=== PATIENT | male | born 1950 | race Two or more races ===

== ENCOUNTER → 2018-06-29 | Day surgery (SDC) | payer BC ==
[2018-06-25 11:34] VITALS: BMI 25.7
[~2018-06-29] MED LIST: LACTATED RINGERS 1,000 ML IV SCH; LIDOCAINE 1% 20 ML VIAL (10MG/ML) FOR IV START INTRADERMA PRN; LIDOCAINE 1% INJ 10MG/ML (20 ML MDV) ONE; MIDAZOLAM 2 MG/2 ML VIAL ONE; PROPOFOL 10 MG/ML 20 ML VIAL IV ONE; fentaNYL (PF) 50 MCG/ML 2 ML AMP ONE
[2018-06-29 06:40] LABS: Glucose,Whole Blood 91 mg/dL (75-99)
[2018-06-29 06:44] VITALS: RESP 16; TEMP 97.2
[2018-06-29 07:42] VITALS: BP 133/71; PULSE 68
[2018-06-29 08:07] LABS: Basophils % (A) 0 %; Eosinophils # (A) 0.1 k/uL (0-0.7); Eosinophils % (A) 1 %; HCT 44.8 % (39.0-53.0); HGB 14.3 gm/dL (13.0-17.5); Lymphocytes # (A) 2.4 k/uL (1.0-4.8); Lymphocytes % (A) 30 %; MCHC 31.9 g/dL (31.0-37.0); Mean Platelet Volume 6.2; Monocytes # (A) 0.6 k/uL (0-1.0); Monocytes % (A) 8 %; Neutrophils # (A) 4.7 k/uL (1.3-7.7); Neutrophils % (A) 59 %; Platelet Count 208 k/uL (150-450); RBC 4.92 m/uL (4.30-5.90)
--- NOTE | 2018-06-29 09:52 | PCN ---
PROCEDURE NOTE PROCEDURE: Bone marrow aspirate and biopsy. INDICATION: Monoclonal gammopathy. After obtaining consent from the patient, the procedure was performed in the endoscopy suite under general anesthesia, performed by Anesthesia Team. The patient was put in the left lateral decubitus position. The right posterior superior iliac crest was localized. Skin was prepped with ChloraPrep and all sterile procedures were followed and 2 mL of 1% lidocaine was used for local anesthetic. Jamshidi needle was inserted, about 15 mL of aspirate and 2 cm core biopsy was obtained without any difficulties. Pressure applied afterwards. There was negligible blood loss. Patient tolerated the procedure very well without any immediate complications. MMODL / IJN: [id number] /
== END ==
LOC: OR 05:56
PROVIDERS: ATTEND Internal Medicine Hematology & Oncology
DX: I10 Essential (primary) hypertension (principal); E03.9 Hypothyroidism, unspecified; E78.5 Hyperlipidemia, unspecified; Z80.0 Family history of malignant neoplasm of digestive organs; Z87.891 Personal history of nicotine dependence; Z79.52 Long term (current) use of systemic steroids; Z79.899 Other long term (current) drug therapy; K21.9 Gastro-esophageal reflux disease without esophagitis
CPT/HCPCS: 85025; 38222; J2250; J2001; J3010; J2704

== ENCOUNTER → 2019-07-09 | Outpatient (CLI) | payer MEDICARE ==
--- NOTE | 2019-07-11 15:21 | PE ---
EXAMINATION TYPE: PET CT fusion whole body DATE OF EXAM: 07/09/2019 COMPARISON: PET/CT dated 07/10/2018 HISTORY: Multiple myeloma. Subsequent treatment strategy. TECHNIQUE: Following the intravenous administration of 12.92 mCi of F-18 FDG, whole body images are performed from the skull base to the midthigh. Images are reviewed on the computer in the coronal, a xial, and sagittal planes. Reconstructed rotating images are created on independent workstation and reviewed on the computer. A localization and attenuation correction CT is performed in conjunction with the PET scan. SCAN: Subsequent treatment strategy FINDINGS: Mediastinal background: 1.6 Abdominal background: 3.2 SKULL BASE AND NECK: There is a 6 mm lytic lesion of C2 that is new from the prior. This is measured on series 3 image 54. This has a maximum SUV of 1.6 and is not above mediastinal nor abdominal backg round. CHEST, MEDIASTINUM, AND HILAR REGION: No suspicious hypermetabolic uptake. ABDOMEN AND PELVIS: No suspicious hypermetabolic uptake. OSSEOUS STRUCTURES: No suspicious hypermetabolic uptake. OTHER CT: Orbits are symmetric and lenses are in place. Paranasal sinuses and mastoid air cells are w ell aerated. Mild multilevel degenerative changes of the cervical spine more pronounced in the lower cervical spine. Mild arthropathy of the shoulders and moderate acromioclavicular arthropathy. Moderat e degenerative changes of the thoracolumbar spine. Vacuum phenomenon of the sacroiliac joints. Minimal bibasilar subsegmental dependent atelectasis is seen. [place] artifact from the patient's arms limits evaluation of the upper abdomen. Moderate coronary calcifications are seen. No adenopathy in t he chest. Heart is upper limits of normal size but nonenlarged. Mild bilateral retroareolar gynecomas tia is present. No splenomegaly. Unenhanced liver, spleen, adrenal glands, and gallbladder are grossl y unremarkable. Advanced atherosclerosis of the abdominal aorta and its branches. Prostate is heterog enous. Inguinal rings containing small amount of fat bilaterally and are patulous. Mild degree coloni c fecal stasis. No dilated large or small bowel. Right renal cyst is partially exophytic of the upper pole medially measuring 5.4 cm. This is fluid attenuated. Lobulated contour of both kidneys is seen that may relate to prior multifocal remote injury or lobulation. Lower pole renal cyst from the left measures 2.7 cm. IMPRESSION: Solitary new 6 mm lytic lesion of C2 without current hypermetabolic activity. No new osse ous or soft tissue avidity seen throughout.
== END | disposition home or self-care (01) ==
LOC: RADPETMAIN 08:59
PROVIDERS: ATTEND Internal Medicine Hematology & Oncology
DX: C90.00 Multiple myeloma not having achieved remission (principal)
CPT/HCPCS: 78816; A9552

== ENCOUNTER → 2020-02-14 | Outpatient (CLI) | payer MEDICARE ==
--- NOTE | 2020-02-14 14:35 | XR ---
EXAMINATION TYPE: XR chest 2V DATE OF EXAM: 02/14/2020 COMPARISON: NONE HISTORY: Shortness of breath TECHNIQUE: Frontal and lateral views of the chest are obtained. FINDINGS: Scattered senescent parenchymal changes noted. Hyperinflation compatible with COPD. No evidence for infiltrate. No evidence for atelectasis. Heart size is stable. Mediastinal structures are stable and grossly unremarkable. No evidence for hilar prominence. Degenerative changes dorsal spine. IMPRESSION: 1. No evidence for acute pulmonary disease.
--- NOTE | 2020-02-14 14:40 | XR ---
EXAMINATION TYPE: XR bone survey complete DATE OF EXAM: 02/14/2020 COMPARISON: NONE HISTORY: Z01.818 chemo exposure Bony calvarium : 2 views of the bony calvarium demonstrate multiple small lucencies which could refle ct a metastatic disease or multiple myeloma. Spine: Two views of the cervical, thoracic and lumbar spines are submitted. No lytic or blastic lesi ons identified. C2 lesion described on PET/CT is not redemonstrated. Multilevel disc disease and spon dylosis. PELVIS: Single view of the pelvis demonstrates no evidence for lytic or blastic lesion. UPPER EXTREMITIES: Two views of the upper extremities demonstrate no evidence for lytic or blastic le dimitris. LOWER EXTREMITIES: 2 views of the lower extremities demonstrate no evidence for lytic or blastic lesi on. IMPRESSION: 1. Multiple small lucencies of the bony calvarium.
--- NOTE | 2020-02-15 10:42 | ECHOF ---
Referral Reason:Z01.818 chemo exposure MEASUREMENTS -------- HEIGHT: 175.3 cm WEIGHT: 77.1 kg BP: IVSd: 0.8 cm (0.6 - 1.1) LVIDd: 3.7 cm (3.9 - 5.3) LVPWd: 1.0 cm (0.6 - 1.1) IVSs: 1.3 cm LVIDs: 2.3 cm LVPWs: 1.8 cm LAESV Index (A-L): 20.30 ml/m Ao Diam: 3.1 cm (2.0 - 3.7) AV Cusp: 2.2 cm (1.5 - 2.6) LA Diam: 3.3 cm (2.7 - 3.8) MV EXCURSION: 14.924 mm (> 18.000) MV EF SLOPE: 94 mm/s (70 - 150) EPSS: 1.8 cm MV E Pineda: 0.78 m/s MV DecT: 234 ms MV A Pineda: 1.06 m/s MV E/A Ratio: 0.74 RAP: 5.00 mmHg RVSP: 30.43 mmHg TAPSE: 24.99 mm FINDINGS -------- Sinus rhythm. This was a technically good study. The left ventricular size is normal. Left ventricular wall thickness is normal. Overall left vent ricular systolic function is normal with, an EF between 55 - 60 %. The diastolic filling pattern is normal for the age of the patient 8.22. The right ventricle is normal in size. The left atrial size is normal. Normal LA size by volume 22+/-6 ml/m2. The right atrial size is normal. The aortic valve is trileaflet and appears structurally normal. The mitral valve is normal. There is trace mitral regurgitation. The tricuspid valve appears structurally normal. Trace tricuspid regurgitation present. Right delmar tricular systolic pressure is normal at < 35 mmHg. There is no pulmonic regurgitation present. The aortic root size is normal. Normal inferior vena cava with normal inspiratory collapse consistent with estimated right atrial pre ssure of 5 mmHg. There is no pericardial effusion. CONCLUSIONS -------- 1. Sinus rhythm. 2. This was a technically good study. 3. The left ventricular size is normal. 4. Left ventricular wall thickness is normal. 5. Overall left ventricular systolic function is normal with, an EF between 55 - 60 %. 6. The diastolic filling pattern is normal for the age of the patient 8.22 7. The right ventricle is normal in size. 8. The left atrial size is normal. 9. Normal LA size by volume 22+/-6 ml/m2. 10. The right atrial size is normal. 11. The aortic valve is trileaflet and appears structurally normal. 12. The mitral valve is normal. 13. There is trace mitral regurgitation. 14. The tricuspid valve appears structurally normal. 15. Trace tricuspid regurgitation present. 16. Right ventricular systolic pressure is normal at < 35 mmHg. 17. There is no pulmonic regurgitation present. 18. The aortic root size is normal. 19. Normal inferior vena cava with normal inspiratory collapse consistent with estimated right atrial pressure of 5 mmHg. 20. There is no pericardial effusion. AEROSPACE QUALITY ENGINEER: Sabrina Craig RDCS
== END | disposition home or self-care (01) ==
LOC: RADECHMAIN 13:34
PROVIDERS: ATTEND Internal Medicine Hematology & Oncology
DX: Z01.818 Encounter for other preprocedural examination (principal); C90.00 Multiple myeloma not having achieved remission; M62.81 Muscle weakness (generalized); R21 Rash and other nonspecific skin eruption; I10 Essential (primary) hypertension
CPT/HCPCS: 71046; 77075; 80053; 82784; 83615; 83883; 84165; 85025; 86334; 86704; 86706; 86790; 86803; 87340; 87390; 93306

== ENCOUNTER → 2020-02-20 | Day surgery (SDC) | payer MEDICARE ==
[2020-02-17 11:00] VITALS: BMI 25.1
== END ==
LOC: OR 10:10
PROVIDERS: ATTEND Internal Medicine Hematology & Oncology
DX: C90.00 Multiple myeloma not having achieved remission (principal); Z53.9 Procedure and treatment not carried out, unspecified reason

== ENCOUNTER → 2020-02-20 | Outpatient (CLI) | payer MEDICARE | END | disposition home or self-care (01) | LOC: CPPFTMAIN 10:14 | PROVIDERS: ATTEND Internal Medicine Hematology & Oncology | DX: Z01.818 Encounter for other preprocedural examination (principal); C90.00 Multiple myeloma not having achieved remission; M62.81 Muscle weakness (generalized); R21 Rash and other nonspecific skin eruption; I10 Essential (primary) hypertension | CPT/HCPCS: 94060; 94726; 94729 ==

== ENCOUNTER 2020-02-21 10:37 | Day surgery (SDC) | payer MEDICARE ==
[2020-02-21 11:15] VITALS: RESP 16; TEMP 97.1
[2020-02-21] MEDS ORDERED: LIDOCAINE 1% (10MG/ML) FOR IV START INTRADERMA ONE (11:25)
[2020-02-21] MEDS ORDERED: LACTATED RINGERS 1,000 ML IV ONE (11:32)
[2020-02-21] MEDS ORDERED: PROPOFOL 10 MG/ML 20 ML VIAL IV ONE (12:43)
[2020-02-21 13:06] LABS: Basophils % (A) 1 %; Eosinophils # (A) 0.2 k/uL (0-0.7); Eosinophils % (A) 4 %; HCT 41.5 % (39.0-53.0); HGB 13.7 gm/dL (13.0-17.5); Lymphocytes % (A) 23 %; MCH 31.1 pg (25.0-35.0); MCHC 33.1 g/dL (31.0-37.0); MCV 93.9 fL (80.0-100.0); Mean Platelet Volume 7.5; Monocytes # (A) 0.5 k/uL (0-1.0); Monocytes % (A) 10 %; Neutrophils # (A) 2.6 k/uL (1.3-7.7); Neutrophils % (A) 59 %; Platelet Count 144 k/uL (150-450); RBC 4.42 m/uL (4.30-5.90); RDW 13.4 % (11.5-15.5); Reticulocyte % 1.2 % (0.5-2.0); WBC 4.5 k/uL (3.8-10.6)
[2020-02-21 13:30] VITALS: BP 139/77; PULSE 69
--- NOTE | 2020-02-21 17:41 | OP ---
OPERATIVE REPORT PROCEDURE: Bone marrow aspirate and biopsy. INDICATION: Followup on multiple myeloma prior to stem cell transplant. PROCEDURE DESCRIPTION: After obtaining consent from the patient, the procedure was performed in the endoscopy suite under anesthesia performed by the anesthesia team. The patient was put on the left lateral decubitus position. All sterile procedures were followed. ChloraPrep was used for local anesthetic. Two mL of 1% Xylocaine was used for local anesthesia. Jamshidi needle was inserted and 50 mL aspirate and a 1.5 cm core biopsy were obtained without any difficulties. Pressure was applied afterwards. There was negligible blood loss. Patient tolerated the procedure very well without any immediate complications. MMODL / IJN: [id number] /
== END 2020-02-21 13:31 | disposition home or self-care (01) ==
LOC: OR 10:37
PROVIDERS: ATTEND Internal Medicine Hematology & Oncology
DX: C90.00 Multiple myeloma not having achieved remission (principal); M62.81 Muscle weakness (generalized); R21 Rash and other nonspecific skin eruption; I10 Essential (primary) hypertension; E03.9 Hypothyroidism, unspecified; E78.5 Hyperlipidemia, unspecified; K21.9 Gastro-esophageal reflux disease without esophagitis; Z79.82 Long term (current) use of aspirin; Z79.899 Other long term (current) drug therapy; Z79.890 Hormone replacement therapy; Z79.52 Long term (current) use of systemic steroids; M72.0 Palmar fascial fibromatosis [Dupuytren]; Z87.39 Personal history of other diseases of the musculoskeletal system and connective tissue; Z98.890 Other specified postprocedural states; Z80.0 Family history of malignant neoplasm of digestive organs; Z86.19 Personal history of other infectious and parasitic diseases; Z87.891 Personal history of nicotine dependence
CPT/HCPCS: 85025; 85045; 38222; J2704

== ENCOUNTER 2020-07-02 10:00 | Day surgery (SDC) | payer MEDICARE ==
[~2020-07-02 10:00] MED LIST changes: +LIDOCAINE 1% (10MG/ML) FOR IV START INTRADERMA PRN; -LIDOCAINE 1% 20 ML VIAL (10MG/ML) FOR IV START INTRADERMA PRN; -LIDOCAINE 1% INJ 10MG/ML (20 ML MDV) ONE; -MIDAZOLAM 2 MG/2 ML VIAL ONE; -PROPOFOL 10 MG/ML 20 ML VIAL IV ONE; -fentaNYL (PF) 50 MCG/ML 2 ML AMP ONE
[2020-07-02 10:19] VITALS: TEMP 97.8
[2020-07-02] MEDS ORDERED: LACTATED RINGERS 1,000 ML IV ONE (10:20)
[2020-07-02] MEDS ORDERED: PROPOFOL 10 MG/ML 20 ML VIAL IV ONE (11:02)
--- NOTE | 2020-07-02 11:26 | P.PCN ---
Date of Procedure: 07/02/20 Procedure(s) Performed: Brief history: Patient is a pleasant 70-year-old white male scheduled for an elective upper endoscopy as well as colonoscopy as a part of evaluation of with abdominal pain, change in bowel habits and progressive weight loss of 30 pounds in the last month duration. Proced, months.ure performed: Esophagogastroduodenoscopy biopsy Colonoscopy with biopsy and snare polypectomy Preoperative diagnosis: Abdominal pain/progressive weight loss/change in bowel habits Anesthesia: MAC Procedure: After informed consent was obtained from the patient was brought into the endoscopy unit and IV sedation was administered by anesthesia under continuous monitoring. Initially upper endoscopy was done. The Olympus GF 160 video endoscope was inserted inserted into the mouth and esophagus intubated without any difficulty and was gradually advanced into the stomach and duodenum and carefully examined. The bulb and second part of the duodenum appeared normal. The scope was then withdrawn into the stomach adequately insufflated with air and upon careful examination the antrum body, cardia and fundus appeared normal. The scope was then withdrawn into the esophagus. The GE junction was located at 40 cm to the incisors. It appeared regular with no erythema erosions or ulcerations. Rest of the esophagus appeared normal. Patient tolerated the procedure well. At this time the patient continued to remain sedation. Initial digital rectal examination was normal. Olympus CF 160 video colonoscope was then inserted into the rectum and gradually advanced to the cecum without any difficulty. Careful examination was performed as the scope was gradually being withdrawn. The prep was excellent. The cecum, normal. Ascending colon there was a 3 mm polyp that was removed by cold biopsy. Rest of the ascending colon, transverse colon appeared normal. The descending colon there was a 1.5 cm pedunculated polyp removed by snare polypectomy., Rest of the descending colon, sigmoid colon and rectum appeared normal. Retroflexion was performed in the rectum and no lesions were noted. Patient tolerated the procedure well. Impression: 1. Upper endoscopy revealed mild antral gastritis small gastric polyps 2. Colonoscopy revealed a diminutive; ascending colon polyp status post biopsy; and a 1.5 cm descending colon polyp status post polypectomy Recommendations: Findings of this examination were discussed with the patient as well as his family. He was advised to follow with the biopsy results. If the biopsy shows an adenoma he can have a repeat colonoscopy in 3 years
[2020-07-02 11:30] VITALS: RESP 16
[2020-07-02 11:46] VITALS: BP 122/75; PULSE 72
--- NOTE | 2020-07-04 07:57 | CDI ---
Date: 07.04.2020 CDS/[place] Patching Machine Operator Name: Louise Hernandez Phone: If any questions, call Hodan Carlos Process Development Technician at [phone] Patient Name: Rob Wilburn Admit Date 07.02.20 Discharge Date: 07.02.20 ATTENTION: The [facility] Coding Staff appreciate your assistance in clarifying documentation. Please respond to the clarification below the line at the bottom and electronically sign. The [facility] Coding staff will review the response and follow-up if needed. Please note: Queries are made part of the Legal Health Record. If you have any questions, please contact the Process Development Technician. Dear Dr. Ray In order to code to the greatest specificity and for the greatest reimbursement I need the following information: In your EGD note, there is no mention of biopsys being taken, but there were specimens sent to Path (Duodenum and Gastric antrum polyp). Please document. Thank you for your kind consideration. MTDD
== END 2020-07-02 12:12 | disposition home or self-care (01) ==
LOC: ORWHC2ENDO 10:00
PROVIDERS: ATTEND Internal Medicine Gastroenterology
DX: K63.5 Polyp of colon (principal); D12.4 Benign neoplasm of descending colon; K29.50 Unspecified chronic gastritis without bleeding; K31.7 Polyp of stomach and duodenum; I10 Essential (primary) hypertension; E78.5 Hyperlipidemia, unspecified; E07.9 Disorder of thyroid, unspecified; K21.9 Gastro-esophageal reflux disease without esophagitis; C90.00 Multiple myeloma not having achieved remission; Z79.890 Hormone replacement therapy; Z79.899 Other long term (current) drug therapy
CPT/HCPCS: 43239; 45385; 45380; 88305; J2704

== ENCOUNTER → 2022-07-10 | Outpatient (CLI) | payer MEDICARE ==
[~2022-07-10] MED LIST changes: -LACTATED RINGERS 1,000 ML IV SCH; -LIDOCAINE 1% (10MG/ML) FOR IV START INTRADERMA PRN; +TIXAGEVIMAB/CILGAVIMAB (EUA) 300 MG/3 ML COMBO.PKG IM NR
[2022-07-10 09:31] VITALS: TEMP 98.2
[2022-07-10 10:07] VITALS: BP 151/81; PULSE 76; RESP 16
== END ==
LOC: PROCWHC3 09:06
PROVIDERS: ATTEND Internal Medicine Hematology & Oncology
DX: Z23 Encounter for immunization (principal); Z87.891 Personal history of nicotine dependence
CPT/HCPCS: Q0220; M0220

== ENCOUNTER → 2023-05-25 | Outpatient (CLI) | payer MEDICARE ==
[2023-05-25 21:07] LABS: HCT 47.5 % (39.0-53.0); HGB 15.1 gm/dL (13.0-17.5); MCH 31.4 pg (25.0-35.0); MCHC 31.9 g/dL (31.0-37.0); MCV 98.4 fL (80.0-100.0); Mean Platelet Volume 8.6; Platelet Count 123 k/uL (150-450); RBC 4.83 m/uL (4.30-5.90); RDW 14.5 % (11.5-15.5); WBC 3.9 k/uL (3.8-10.6)
[2023-05-25 21:14] LABS: INR 1.1 (<1.2); Prothrombin Time 11.5 sec (9.0-12.0)
[2023-05-25 21:19] LABS: ALT 66 U/L (4-49); AST 66 U/L (17-59); African American GFR (CKD) >90 (>60 ml/min/1.73 sqM); Albumin 3.9 g/dL (3.5-5.0); Alkaline Phosphatase 65 U/L (38-126); Anion Gap 8 mmol/L; Blood Urea Nitrogen 8 mg/dL (9-20); Calcium 8.9 mg/dL (8.4-10.2); Carbon Dioxide 29 mmol/L (22-30); Chloride 101 mmol/L (98-107); Glucose 130 mg/dL (74-99); Non-African American GFR(CKD) >90 (>60 ml/min/1.73 sqM); Potassium 4.1 mmol/L (3.5-5.1); Sodium 138 mmol/L (137-145); Total Bilirubin 0.4 mg/dL (0.2-1.3); Total Protein 7.4 g/dL (6.3-8.2)
[2023-05-25 22:04] LABS: Appearance,Urine Clear (Clear); Color,Urine Colorless; PH, Urine 5.5 (5.0-8.0); Protein,Urine Negative (Negative); Specific Gravity,Urine 1.006 (1.001-1.035)
[2023-05-25 22:05] LABS: Bilirubin,Urine Negative (Negative); Blood,Urine Negative (Negative); Glucose,Urine (UA) Negative (Negative); Ketones,Urine Negative (Negative); Leukocyte Esterase,Urine Negative (Negative); Nitrite,Urine Negative (Negative); RBC,Urine 1 /hpf (0-5); Urobilinogen,Urine <2.0 mg/dL (<2.0); WBC,Urine 1 /hpf (0-5)
== END | disposition home or self-care (01) ==
LOC: LABPAT 15:00
PROVIDERS: ATTEND Orthopaedic Surgery
DX: Z01.812 Encounter for preprocedural laboratory examination (principal); M16.12 Unilateral primary osteoarthritis, left hip
CPT/HCPCS: 80053; 81003; 85027; 85610; 85730; 86850; 86900; 86901; 93005

== ENCOUNTER 2023-06-03 11:16 | Day surgery (SDC) | payer MEDICARE ==
[2023-05-25 21:07] LABS: HCT 47.5 % (39.0-53.0); HGB 15.1 gm/dL (13.0-17.5); MCH 31.4 pg (25.0-35.0); MCHC 31.9 g/dL (31.0-37.0); MCV 98.4 fL (80.0-100.0); Mean Platelet Volume 8.6; Platelet Count 123 k/uL (150-450); RBC 4.83 m/uL (4.30-5.90); RDW 14.5 % (11.5-15.5); WBC 3.9 k/uL (3.8-10.6)
[2023-05-25 21:14] LABS: INR 1.1 (<1.2); Prothrombin Time 11.5 sec (9.0-12.0)
[2023-05-25 21:19] LABS: ALT 66 U/L (4-49); AST 66 U/L (17-59); African American GFR (CKD) >90 (>60 ml/min/1.73 sqM); Albumin 3.9 g/dL (3.5-5.0); Alkaline Phosphatase 65 U/L (38-126); Anion Gap 8 mmol/L; Blood Urea Nitrogen 8 mg/dL (9-20); Calcium 8.9 mg/dL (8.4-10.2); Carbon Dioxide 29 mmol/L (22-30); Chloride 101 mmol/L (98-107); Glucose 130 mg/dL (74-99); Non-African American GFR(CKD) >90 (>60 ml/min/1.73 sqM); Potassium 4.1 mmol/L (3.5-5.1); Sodium 138 mmol/L (137-145); Total Bilirubin 0.4 mg/dL (0.2-1.3); Total Protein 7.4 g/dL (6.3-8.2)
[2023-05-25 22:04] LABS: Appearance,Urine Clear (Clear); Color,Urine Colorless; PH, Urine 5.5 (5.0-8.0); Protein,Urine Negative (Negative); Specific Gravity,Urine 1.006 (1.001-1.035)
[2023-05-25 22:05] LABS: Bilirubin,Urine Negative (Negative); Blood,Urine Negative (Negative); Glucose,Urine (UA) Negative (Negative); Ketones,Urine Negative (Negative); Leukocyte Esterase,Urine Negative (Negative); Nitrite,Urine Negative (Negative); RBC,Urine 1 /hpf (0-5); Urobilinogen,Urine <2.0 mg/dL (<2.0); WBC,Urine 1 /hpf (0-5)
[2023-05-27 11:00] VITALS: BMI 25.8
[~2023-06-03 11:16] MED LIST changes: +ACETAMINOPHEN TAB 500 MG TAB PO PRN; +DEXAMETHASONE SOD PHOSPHATE 10 MG/ML 1 ML VIAL IV PRN; +DEXAMETHASONE SOD PHOSPHATE 4 MG/ML 1 ML VIAL IV ONE; +DOCUSATE 100 MG CAP PO PRN; +FAMOTIDINE 20 MG/2 ML VIAL IVP PRN; +HYDROmorphone 0.5 MG/0.5 ML SYRINGE IVP PRN; +KETOROLAC 15 MG/ML 1 ML VIAL IVP PRN; +ONDANSETRON 4 MG/2 ML VIAL IVP ONE; +ONDANSETRON 4 MG/2 ML VIAL IVP PRN; -TIXAGEVIMAB/CILGAVIMAB (EUA) 300 MG/3 ML COMBO.PKG IM NR; +TRANEXAMIC 1,000 MG/100ML-NACL 1,000 MG in SALINE 1 100ML.BAG IV PRN; +TRANEXAMIC 1,000 MG/100ML-NACL 1,000 MG in SALINE 1 100ML.BAG IVPB PRN; +oxyCODONE ER 10 MG TAB.ER.12H PO PRN
[2023-06-03] MEDS: LACTATED RINGERS 1,000 ML IV SCH ×3 (12:15→17:08)
[2023-06-03 12:24] LABS: Mean Platelet Volume 8.7; Platelet Count 146 k/uL (150-450)
[2023-06-03] MEDS ORDERED: MIDAZOLAM 2 MG/2 ML VIAL IVP ONE (12:46)
[2023-06-03] MEDS ORDERED: NEOSTIGMINE 1 MG/ML 10 ML VIAL ONE (12:53)
[2023-06-03] MEDS ORDERED: ROCURONIUM 10 MG/ML (5 ML VIAL) IV ONE (12:53)
[2023-06-03] MEDS ORDERED: fentaNYL (PF) 50 MCG/ML 2 ML AMP ONE (12:53)
[2023-06-03] MEDS ORDERED: SUCCINYLCHOLINE CHLORIDE 200 MG/10 ML VIAL IV ONE (12:53)
[2023-06-03] MEDS ORDERED: ROPIVACAINE 5 MG/ML 30 ML VIAL ONE (12:53)
[2023-06-03] MEDS ORDERED: LIDOCAINE 1% INJ 10MG/ML (20 ML MDV) ONE (12:53)
[2023-06-03] MEDS ORDERED: PROPOFOL 10 MG/ML 20 ML VIAL IV ONE (12:53)
[2023-06-03] MEDS ORDERED: GLYCOPYRROLATE 0.2 MG/ML 2 ML VIAL ONE (12:53)
[2023-06-03] MEDS ORDERED: TRANEXAMIC 1,000 MG/100ML-NACL PREMIX BAG ONE (12:53)
--- NOTE | 2023-06-03 13:21 | P.ANPRN ---
Procedure Note - Anesthesia - Nerve Block Performed Left Kurt Single Time Out Performed: Yes Date of Procedure: 06/03/23 Location of Patient: PreOp Indication: Acute Post-Operative Pain, Dx/Pain Location (Left hip pain), Requested by Surgeon Specifically requested for management of pain by DrRebeca: Amos Miller Sedation Type: Sedate with meaningful contact maintained Position: Supine Catheter: None Needle Types: Pajunk Needle Gauge: 21 Ultrasound used to visualize needle placement: Yes Ultrasound used to observe medication spread: Yes Injectate: 0.5% Ropivacaine (see comment for volume) (30 mL +10 mL of normal saline) Blood Aspirated: No Pain Paresthesia on Injection Noted: No Resistance on Injection: Normal Image Stored and Saved: Yes Events: Uneventful and Well Tolerated
[2023-06-03] MEDS: ROPIVACAINE/EPI/CLONIDINE/KET 50 ML SYRINGE MISCELLANE PRN ×2 (13:34→14:10)
[2023-06-03] MEDS ORDERED: LACTATED RINGERS 1,000 ML IV ONE (13:35)
--- NOTE | 2023-06-03 14:56 | P.OP ---
Date of Procedure: 06/03/23 Preoperative Diagnosis: 1. Severe left hip osteoarthritis 2. History of multiple myeloma in remission 3. Thrombocytopenia Postoperative Diagnosis: Same Procedure(s) Performed: Left direct anterior total hip arthroplasty Implants: 1. Natalya Trident II Acetabular Cup, Size #54 2. [place] Insignia Size #5 Femoral Stem, Standard Offset 3. Biolox delta femoral head, 36 mm, - 5 mm neck Anesthesia: RENEE, regional Surgeon: Amos Miller Epitaxial Reactor Operator #1: Jodee Gardner Estimated Blood Loss (ml): 200 IV fluids (ml): 800 Pathology: none sent Condition: stable Disposition: PACU Indications for Procedure: I had a long discussion with the patient in the office on the potential risks and complications of an elective total hip replacement through a direct anterior approach. Risks discussed include, but are certainly not limited to, risks from anesthesia, superficial infection requiring local wound care or antibiotics, deep farrah-prosthetic joint infection and the treatment required to eradicate i nfection, intraoperative fracture, postoperative periprosthetic fracture, damage to local blood vessels or nerves particularly the lateral femoral cutaneous nerve, delayed wound healing requiring local wound care or possibly surgical debridement, hip dislocation, leg length discrepancy, soft tissue irritation around the total hip implant such as iliopsoas tendinitis or trochanteric bursitis, wear and osteolysis from the implants, squeaking or audible noises, groin pain, thigh pain, heterotopic ossification, stiffness, aseptic loosening of the implants, dissatisfaction with surgical outcome, need for revision surgery, DVT, PE, swelling of the operative extremity, acute coronary event, stroke, failure to thrive, and possibly loss of life or limb. The patient understands that while these are the most common complications after an elective hip replacement there are certainly other less common complications possible. They were given ample time to ask questions regarding the potential comp lications of a hip replacement. Following our discussion the patient provided their verbal and written consent to go forward with an elective total hip replacement. Operative Findings: Severe left hip osteoarthritis Description of Procedure: The patient was identified in the preoperative holding area and the correct hip was marked with my initials. I reviewed the procedure and consent with the patient. All of their questions were answered. The patient was then brought back into the operating room by anesthesia. While on the [facility] anesthesia was administered by the anesthesia team. Preoperative antibiotics and tranexamic acid were also given. After the patient was under anesthesia I examined their ankles to determine their preoperative leg length discrepancy. The skin over the anterior aspect of the hip was shaved to remove hair over the site of planned incision. Both feet and ankles were padded with webril and boots for the [place] were applied. The patient was then carefully transferred onto the [place] table. A perineal post was immediately placed. The arms were placed on arm holders and were well-padded. Both boots were secured to the spars on the [place] table. The patient was positioned so that the pelvis was centered over the post. Nonsterile drapes were applied. A timeout was performed identifying the correct patient, operative extremity, and procedure. At this point fluoroscopy was brought in to take preoperative images of the pelvis and operative hip. Using the standing AP pelvis from the office as a template, a comparable image was obtained with fluoroscopy. A metallic bar was used to create a bi-ischial line for use as a reference to leg length adjustments during the procedure. Global offset was also measured on both the operative and nonoperative leg. Fluoroscopy was then brought out and a pre-scrub using a chlorhexidine scrub brush was performed. The operative limb was then prepped and draped in the standard sterile fashion. An anterior longitudinal incision was made lateral and distal to the ASIS. The skin and subcutaneous tissues were incised sharply. The underlying tensor fascia was identified and incised in its midportion. The fascia was dissected free from the underlying muscle and the muscle belly was retracted. A blunt tipped cobra retractor was placed over the superior neck under the muscle fibers of the gluteus minimus. The deep enveloping fascia of the tensor was incised. The anterior leash of vessels were then identified and cauterized. The fascia between the rectus and the capsule was then incised and the pre-capsular fat was excised. A second Cobra was placed inferior to the neck. The interval between the rectus and iliocapsularis and the hip capsule was developed and a retractor was placed carefully over the anterior rim of the acetabulum. A T-shaped anterior capsulotomy was performed. The superior capsular leaflet was left in place in the inferior capsular flap was excised. The Cobra retractors were placed intracapsularly. We then made a femoral neck osteotomy according to preoperative and intraoperative templating and confirmed the level of the osteotomy using fluoroscopic imaging. The femoral head was removed, passed off to the back table, and sized. The superior capsular flap was excised. Retractors were placed circumferentially exposing the acetabulum. We then circumferentially debrided the acetabulum free of labrum and osteophytes. The pulvinar was removed to fully visualize the cotyloid fossa. We then sequentially reamed to achieve peripheral fit and excellent bleeding subchondral bone. The socket was thoroughly irrigated. The acetabular component was impacted into the appropriate position using fluoroscopy to guide version, inclination, and depth of insertion taking care to have a comparable image of the AP pelvis to the standing image taken in the office. An excellent press-fit was achieved and final position was confirmed using fluoroscopy. The press fit was augmented with bony cancellus dome screws. The liner was then impacted into the socket. Attention was then turned to the femur. The remnant dorsal lateral capsule was excised. The short external rotators were visible and protected. A bone hook was used to confirm appropriate translation of the trochanter away from the acetabulum. The leg was then extended and adducted and the bone hook was used to elevate the femur for broaching. A box osteotome and blunt tipped canal sound was then utilized to gain access to the femoral canal. We then sequentially broached the femur in appropriate anteversion until excellent torsional stability was achieved. The neck cut was brought flush to the trial broach with a calcar planar. A trial neck and head were then placed onto the broach and the hip was atraumatically reduced under direct visualization. External rotation to 90 was performed to assess stability. Fluoroscopy was brought in. An AP and lateral fluoroscopic image of the proximal femur was obtained to assess position and fill of the trial broach. An AP of the pelvis was then obtained and matched to the preoperative image taken. A bi-ischial bar was then placed and measurements were taken to assess changes in length and offset. The hip was then carefully dislocated, the proximal femur was exposed, and the trial implants were removed. The wound and proximal femur was thoroughly irrigated using sterile saline and pulsatile lavage. The final femoral implant was dispensed and gently tapped into place generating an excellent press-fit. The trunnion was cleansed and the final head was tapped into place to engage the Boykin taper. The acetabulum was irrigated and visualized to be free of debris. The hip was carefully reduced. Stability was checked clinically with external rotation to 90 and there was no evidence of instability. Final fluoroscopic images were taken. The wound was then thoroughly irrigated and soaked with a dilute Betadine rinse for 3 minutes. 3 L of sterile saline was irrigated through the wound using pulsatile lavage. Local anesthetic cocktail was injected into the soft tissues around the surgical field. The wound was then closed in layers. A sterile dressing was placed over the surgical incision. The drapes were taken down and the patient was carefully transferred off of the [place] table. Following removal of the boots the leg lengths felt acceptable. The patient was then taken to recovery room having tolerated the procedure well. Jodee Gardner PA-C was required as a skilled producer assistant for patient positioning, surgical exposure, retraction, placement of implants, and closure of the surgical wound. PLAN: The patient can weight-bear as tolerated on the operative extremity. DVT prophylaxis with aspirin 81 mg twice a day based on preoperative risk stratification. Physical therapy for gait training. The patient is going to attempt to discharge home as an outpatient. They're okay to discharge as long as they passed physical therapy and the pain is controlled.
[2023-06-03] MEDS ORDERED: ONDANSETRON 4 MG/2 ML VIAL IVP PRN (15:03)
[2023-06-03] MEDS ORDERED: HYDROmorphone 0.5 MG/0.5 ML SYRINGE IVP PRN ×3 (15:03)
[2023-06-03] MEDS ORDERED: NALOXONE 0.4 MG/ML 1 ML VIAL IV PRN (15:03)
[2023-06-03] MEDS ORDERED: HYDROcodone/APAP 5-325MG 1 EACH TAB PO PRN (15:03)
[2023-06-03] MEDS ORDERED: hydrOXYzine pamoate 25 MG CAP PO PRN (15:03)
--- NOTE | 2023-06-03 15:43 | FL ---
Intraoperative/procedural fluoroscopic services were provided. Total fluoroscopy time is 30 seconds w ith a total of 6 submitted images to PACS. Please see the operative/procedural note for further abraham ls. DAP: 1.1007 Gycm2
--- NOTE | 2023-06-03 19:21 | P.CONS ---
History of Present Illness - Reason for Consult Consult date: 06/03/23 Medical management Requesting physician: Amos Miller - Chief Complaint Left hip surgery - History of Present Illness This is a pleasant 73-year-old patient who follows with [facility]/Dr. Cook. Chronic stable medical conditions include GERD, hypertension, hy pothyroid, gout, osteoarthritis. Patient has to bilateral contractures in both the hands with prior surgeries. Treated for multiple myeloma finished treatment in January 2020. Patient is undergone left hip arthroplasty. Postprocedure pain is controlled. No nausea vomiting. No chest pain or shortness of breath. Sitting up in bed. Review of systems: GEN.: None EYES: None HEENT: None NECK: None RESPIRATORY: None CARDIOVASCULAR: None GASTROINTESTINAL: None GENITOURINARY: None MUSCULOSKELETAL: Joint pains LYMPHATICS: None HEMATOLOGICAL: None PSYCHIATRY: None NEUROLOGICAL: NoneI Past medical history to include: GERD, hypertension, osteoarthritis, hyperlipidemia, hypothyroid, gout, multiple myeloma stopped chemotherapy in 2019. Uses acyclovir. Preventive for shingles. Social history: Previously Drinks 3-4 beers a day. Smoked for 30 years 1 pack a day stopped in 2004. Retired banker. Physical examination: VITAL SIGNS: 97.6, 76, 16, 150/75, 95% room air GENERAL: BMI 25, sitting up and awake comfortable. EYES: Pupils equal. Conjunctiva normal. HEENT: External appearance of nose and ears normal, oral cavity grossly normal. NECK: JVD not raised; masses not palpable. HEART: First and second heart sounds are normal; no edema. LUNGS: Respiratory rate normal; clear to auscultation. ABDOMEN: Soft, nontender, liver spleen not palpable, no masses palpable. PSYCH: Alert and oriented x3; mood and affect normal. MUSCULOSKELETAL:No Clubbing/cyanosis;muscles-grossly intact. Dressing over the left hip. Does avoid multiple joints. Dupuytren's contractures of both the hand but inward curling up with the pinky and ring finger of both hands. NEUROLOGICAL: Cranial nerves grossly intact; no facial asymmetry, power and sensation grossly intact. LYMPHATICS: No lymph nodes palpable in the axilla and neck INVESTIGATIONS, reviewed in the clinical context: 05/25/2023: White count 3.9 hemoglobin 15.1 platelets 123 potassium 4.4 creatinine 0.9 Assessment and plan: -Left total hip arthroplasty. Aspirin 325 mg by mouth twice a day for DVT prophylaxis. IV Ancef for infection prophylaxis. Pain control -Bilateral dupluytrens contracture. Patient's had prior surgeries. -Primary osteoarthritis Voltaren -Hypothyroid Synthroid 50 g a day -GERD Prilosec 20 mg daily at bedtime -Multiple myeloma, being followed by Dr. Mariia Luna Care was discussed with the patient, questions answered. Thank you Dr. Miller Past Medical History Past Medical History: Cancer, GERD/Reflux, Hyperlipidemia, Hypertension, Thyroid Disorder Additional Past Medical History / Comment(s): Hx Gout. Multiple Myeloma- states hx oral chemo, STOPPED END OF JANUARY 2020. Acyclovir used as preventative for shingles. TAKING NO MEDS FOR BP OR CHOLESTEROL. History of Any Multi-Drug Resistant Organisms: None Reported Past Surgical History: Orthopedic Surgery Additional Past Surgical History / Comment(s): STEP CELL TRANSPLANT @ [facility] March,. surgery for dupuytren jamie hands Past Anesthesia/Blood Transfusion Reactions: No Reported Reaction Past Psychological History: No Psychological Hx Reported Smoking Status: Former smoker Past Alcohol Use History: Rare Additional Past Alcohol Use History / Comment(s): smoker for 30 years 1ppd quit 2004. USE TO Drinks 3-4 beers daily Past Drug Use History: None Reported - Past Family History Mother Family Medical History: Cancer Additional Family Medical History / Comment(s): Pancreatic cancer. Medications and Allergies Home Medications Medication Instructions Recorded Confirmed Type Omeprazole 20 mg PO HS 06/25/18 06/03/23 History Lenalidomide [Revlimid] 2.5 mg PO DAILY 07/10/22 06/03/23 History Aspirin 325 mg PO DAILY 05/27/23 06/03/23 History Levothyroxine Sodium [Synthroid] 50 mcg PO QAM 05/27/23 06/03/23 History Aspirin 325 mg PO DAILY 30 Days #60 tab 06/03/23 Rx Diclofenac Sodium [Voltaren] 75 mg PO BID 7 Days #14 tab 06/03/23 Rx Docusate [Colace] 100 mg PO BID #60 capsule 06/03/23 Rx HYDROcodone/APAP 5-325MG [[place] 1 - 2 tab PO Q6HR PRN 7 Days #32 06/03/23 Rx 5-325] tab Omeprazole 40 mg PO DAILY 30 Days #30 cap 06/03/23 Rx Allergies Allergy/AdvReac Type Severity Reaction Status Date / Time No Known Allergies Allergy Verified 06/03/23 11:55 Physical Exam Vitals: Vital Signs Temp Pulse Resp BP Pulse Ox 06/03/23 17:09 71 150/75 95 06/03/23 16:53 61 135/74 96 06/03/23 16:38 75 134/76 97 06/03/23 16:23 97.6 F 76 148/70 97 06/03/23 16:00 67 16 132/68 96 06/03/23 15:45 74 16 134/73 95 06/03/23 15:30 71 16 135/68 96 06/03/23 15:15 69 16 139/72 96 06/03/23 15:00 68 16 153/72 99 06/03/23 14:55 97.8 F 79 16 164/75 100 06/03/23 12:55 66 16 138/65 99 06/03/23 12:45 68 16 169/92 99 06/03/23 12:15 98.2 F 67 16 176/79 98 Intake and Output 06/03/23 06/03/23 06/03/23 06:59 14:59 22:59 Intake Total 1050 300 Output Total 200 Balance 850 300 Intake: IV 1050 100 Intake, IV Titration 200 Amount Lactated Ringers 1,000 ml 200 @ 100 mls/hr IV .Q10H GIACOMO Rx#:[id number] Output: Estimated Blood Loss 200 Other: Weight 74.6 kg 74.6 kg Results CBC & Chem 7: 06/03/23 12:15 05/25/23 19:30 Labs: Abnormal Lab Results - Last 24 Hours (Table) 06/03/23 Range/Units 12:15 Plt Count 146 L (150-450) k/uL
[2023-06-03] MEDS: ASPIRIN 325 MG TAB PO SCH (20:52)
[2023-06-03] MEDS ORDERED: SENNOSIDES-DOCUSATE SODIUM 1 EACH TAB PO SCH (21:00)
[2023-06-03] MEDS ORDERED: PANTOPRAZOLE 40 MG TABLET PO SCH (21:00)
[2023-06-04] MEDS: LACTATED RINGERS 1,000 ML IV SCH (05:22)
[2023-06-04] MEDS: HYDROcodone/APAP 5-325MG 1 EACH TAB PO PRN ×2 (05:56→13:17)
[2023-06-04] MEDS ORDERED: LEVOTHYROXINE 50 MCG TAB PO SCH (06:30)
[2023-06-04] MEDS: ASPIRIN 325 MG TAB PO SCH (07:49)
--- NOTE | 2023-06-04 08:19 | P.DS ---
Providers Expected date of discharge: 06/04/23 Attending physician: Amos Miller Consults: 06/03/23 16:49 Consult Physician Routine Consulting Provider: Juventino Morton Consult Reason/Comments: medical managment Do you want consulting provider notified?: Yes Primary care physician: Stated None Hospital Course: This is a 73-year-old male who has been followed in our office by Dr. Miller for continued complaints of left hip pain due to left hip osteoarthritis. Treatment options were discussed, and patient elected to undergo a left direct anterior total hip arthroplasty. Patient was seen pre-operatively by Janeth Ballesteros NP, Dr. Rajan and cleared for surgery. Patient underwent a left direct anterior total hip arthroplasty on 06/03/[address] Miller. The procedure was performed without complication or sequelae. The patient is doing fairly well postoperatively. Vital signs and labs are stable on postoperative day #1. Patient was examined bedside this morning with Dr. Miller. Patient states he is overall doing well and the pain in the hip is well-controlled. Patient will work with physical therapy this morning. Patient is comfortable being discharged home today. Patient has no new complaints this morning. On examination, the patient is sitting up in bed in no apparent distress. He is alert and orientated 3. On inspection of the left hip, there is a clean, dry, i ntact surgical dressing in place. Motor and sensory function is intact of the left lower extremity. Femoral nerve function intact. The dorsalis pedis pulse is easily palpable, the left lower extremity is warm and well perfused with brisk capillary refill. Calf is soft and non-tender to palpation. Patient is discharged home with home health care today in good condition, pending medical clearance. Patient will follow-up with Dr. Miller in the office in 2 weeks at [facility]. Please see med rec for accurate list of discharge medication. Plan - Discharge Summary Discharge Rx Participant: No New Discharge Prescriptions: New HYDROcodone/APAP 5-325MG [[place] 5-325] 1 - 2 tab PO Q6HR PRN 7 Days #32 tab PRN Reason: Pain Docusate [Colace] 100 mg PO BID #60 capsule Omeprazole 40 mg PO DAILY 30 Days #30 cap Aspirin 325 mg PO DAILY 30 Days #60 tab Diclofenac Sodium [Voltaren] 75 mg PO BID 7 Days #14 tab No Action Omeprazole 20 mg PO HS Lenalidomide [Revlimid] 2.5 mg PO DAILY Levothyroxine Sodium [Synthroid] 50 mcg PO QAM Aspirin 325 mg PO DAILY Discharge Medication List Omeprazole 20 mg PO HS 06/25/18 [History] Lenalidomide [Revlimid] 2.5 mg PO DAILY 07/10/22 [History] Aspirin 325 mg PO DAILY 05/27/23 [History] Levothyroxine Sodium [Synthroid] 50 mcg PO QAM 05/27/23 [History] Aspirin 325 mg PO DAILY 30 Days #60 tab 06/03/23 [Rx] Diclofenac Sodium [Voltaren] 75 mg PO BID 7 Days #14 tab 06/03/23 [Rx] Docusate [Colace] 100 mg PO BID #60 capsule 06/03/23 [Rx] HYDROcodone/APAP 5-325MG [[place] 5-325] 1 - 2 tab PO Q6HR PRN 7 Days #32 tab 06/03/23 [Rx] Omeprazole 40 mg PO DAILY 30 Days #30 cap 06/03/23 [Rx] Follow up Appointment(s)/Referral(s): Amos Miller MD [Medical Doctor] - 2 Weeks Activity/Diet/Wound Care/Special Instructions: Weight bear to tolerance on operative extremity with a walker. Keep operative dressing in place until follow-up in the office. Call the office if dressing becomes saturated or falls off. May shower over dressing. Take pain medications as needed. Take aspirin 325 mg BID x 4 weeks for blood clot prevention. Follow-up in the office in two weeks at [facility]. Call the office with any questions or concerns, Discharge Disposition: HOME WITH HOME HEALTH SERVICES
[2023-06-04 08:53] VITALS: BP 120/74; PULSE 78; RESP 16; TEMP 98.2
[2023-06-04] MEDS ORDERED: LENALIDOMIDE 2.5 MG PO SCH (09:00)
[2023-06-04 11:28] LABS: Basophils # (A) 0.05 X 10*3/uL (0.00-0.10); Basophils % (A) 0.8 %; Eosinophils # (A) 0.14 X 10*3/uL (0.04-0.35); Eosinophils % (A) 2.2 %; HGB 12.6 d/dL (13.0-17.0); Lymphocytes # (A) 0.77 X 10*3/uL (0.90-5.00); Lymphocytes % (A) 12.3 %; MCH 31.2 pg (27.0-32.0); MCHC 32.3 d/dL (32.0-37.0); MCV 96.5 FL (80.0-97.0); Mean Platelet Volume 9.5 FL (9.5-12.2); Monocytes # (A) 0.98 X 10*3/uL (0.20-1.00); Monocytes % (A) 15.7 %; NRBC Per 100 WBC 0 X 10*3/uL (0.00-0.01); Neutrophils # (A) 4.28 X 10*3/uL (1.80-7.70); Neutrophils % (A) 68.5 %; Platelet Count 148 X 10*3/uL (140-440); RBC 4.04 X 10*6/uL (4.40-5.60); RDW 13.8 % (11.5-14.5); WBC 6.25 X 10*3/uL (4.50-10.00)
--- NOTE | 2023-06-04 16:30 | P.PN ---
Subjective Progress Note Date: 06/04/23 - Reason for Consult Consult date: 06/03/23 Medical management Requesting physician: Amos Miller - Chief Complaint Left hip surgery - History of Present Illness This is a pleasant 73-year-old patient who follows with [facility]/Dr. Cook. Chronic stable medical conditions include GERD, hypertension, hypothyroid, gout, osteoarthritis. Patient has to bilateral contractures in both the hands with prior surgeries. Treated for multiple myeloma finished treatment in January 2020. Patient is undergone left hip arthroplasty. Postprocedure pain is controlled. No nausea vomiting. No chest pain or shortness of breath. Sitting up in bed. 06/04/2023 Patient seen and evaluated in follow-up status post left hip arthroplasty and was up and working with physical therapy reporting to doing well. Patient reports awaiting to go home and awaiting discharge papers. Medication reconciled and patient has been instructed to follow-up outpatient with primary care provider. Incentive spirometer at the bedside and encourage the patient to continue using at least 10 times every hour while awake. Patient is afebrile with no reports of chest pain or shortness of breath. Patient tolerating diet with no reported nausea or vomiting. Patient reports the passing gas although no bowel movement as of yet. Patient is voiding with no difficulties. Patient is medically stable for discharge today. Review of systems: Constitutional: No reports of fatigue, fever, or chills Cardiovascular: No reports of chest pain or palpitations Respiratory: No reports of shortness of breath or cough GI: No reports of nausea, vomiting, or diarrhea : No reports of dysuria or retention Neurovascular: No reports of weakness or numbness All medications have been reviewed Physical examination: GENERAL: BMI 25, sitting up and awake comfortable. EYES: Pupils equal. Conjunctiva normal. HEENT: External appearance of nose and ears normal, oral cavity grossly normal. NECK: JVD not raised; masses not palpable. HEART: First and second heart sounds are normal; no edema. LUNGS: Respiratory rate normal; clear to auscultation. ABDOMEN: Soft, nontender, liver spleen not palpable, no masses palpable. PSYCH: Alert and oriented x3; mood and affect normal. MUSCULOSKELETAL:No Clubbing/cyanosis;muscles-grossly intact. Dressing over the left hip is dry and intact. Does avoid multiple joints. Dupuytren's contractures of both the hand but inward curling up with the pinky and ring f edilma of both hands. NEUROLOGICAL: Cranial nerves grossly intact; no facial asymmetry, power and s ensation grossly intact. LYMPHATICS: No lymph nodes palpable in the axilla and neck Assessment: -Left total hip arthroplasty. -Bilateral dupluytrens contracture. Patient's had prior surgeries. -Primary osteoarthritis -Hypothyroid history -GERD -Multiple myeloma, being followed by Dr. Chiang Plan: Patient is status post left total hip arthroplasty with orthopedics scheduled for discharged home with home care today. Patient has been up and working with physical therapy doing relatively well. Incentive spirometer at the bedside encouraged to continue using at least 10 times every hour while awake including bringing home and continuing to use Home medications reviewed and reconciled Patient instructed to follow-up with primary care provider on discharge Keep orthopedic outpatient follow-up appointment Patient is medically stable for discharge today We will continue to follow with orthopedics during hospitalization. Thank you kindly for this consultation. The impression and plan of care has been dictated by Mona Mari, Nurse Practitioner as directed. Dr. Raheel MD I have performed a history and examination and MDM of this patient, discussed the same with the dictator, and agree with the dictator's assessment and plan as written ,documented as a scribe. Based on total visit time, I have performed more than 50% of the visit. Objective - Vital Signs Vital signs: Vital Signs Temp 98.2 F 06/04/23 07:02 Pulse 78 06/04/23 07:02 Resp 16 06/04/23 07:02 BP 120/74 06/04/23 07:02 Pulse Ox 96 06/04/23 07:02 FiO2 Intake & Output 06/03/23 06/04/23 06/04/23 18:59 06:59 18:59 Intake Total 1350 Output Total 200 750 Balance 1150 -750 Weight 74.6 kg Intake: IV 1150 Intake, IV Titration 200 Amount Lactated Ringers 1,000 ml 200 @ 100 mls/hr IV .Q10H GIACOMO Rx#:[id number] Output: Urine 750 Estimated Blood Loss 200 Other: Voiding Method Urinal Urinal # Voids 2 - Labs CBC & Chem 7: 06/04/23 06:25 05/25/23 19:30 Labs: Abnormal Lab Results - Last 24 Hours (Table) 06/03/23 Range/Units 12:15 Plt Count 146 L (150-450) k/uL
== END 2023-06-04 13:55 | disposition home health service (06) ==
LOC: OR 11:16 → 4SSUR 14:43 → OR 06-04 13:55
PROVIDERS: ATTEND Orthopaedic Surgery
DX: M16.12 Unilateral primary osteoarthritis, left hip (principal); D69.6 Thrombocytopenia, unspecified; G89.18 Other acute postprocedural pain; I10 Essential (primary) hypertension; E03.9 Hypothyroidism, unspecified; K21.9 Gastro-esophageal reflux disease without esophagitis; E78.5 Hyperlipidemia, unspecified; Z85.820 Personal history of malignant melanoma of skin; Z96.642 Presence of left artificial hip joint; Z98.890 Other specified postprocedural states; Z87.891 Personal history of nicotine dependence; Z86.59 Personal history of other mental and behavioral disorders; Z79.899 Other long term (current) drug therapy; Z79.82 Long term (current) use of aspirin; Z79.890 Hormone replacement therapy
CPT/HCPCS: 97161; 64447; 80053; 85025; 85027; 85049; 85610; 85730; 81003; 73501; 27130; C1776; J2250; J1100; J0690 ×2; J2405; J3490; J1885; 86850; 86900; 86901

== ENCOUNTER → 2023-07-13 | Outpatient (CLI) | payer MEDICARE ==
[2023-07-13 16:05] LABS: Appearance,Urine Clear (Clear); Bilirubin,Urine Negative (Negative); Blood,Urine Negative (Negative); Color,Urine Yellow (Yellow); Ketones,Urine Negative (Negative); Nitrite,Urine Negative (Negative); PH, Urine 7.5; Specific Gravity,Urine 1.007 (1.001-1.030)
[2023-07-13 16:52] LABS: Basophils # (A) 0.08 X 10*3/uL (0.00-0.10); Basophils % (A) 2.2 %; Eosinophils # (A) 0.08 X 10*3/uL (0.04-0.35); Eosinophils % (A) 2.2 %; HCT 44.9 % (39.6-50.0); HGB 14.4 g/dL (13.0-17.0); Immature Grans, Automated 0 %; Lymphocytes # (A) 1.46 X 10*3/uL (0.90-5.00); Lymphocytes % (A) 39.6 %; MCH 30.3 pg (27.0-32.0); MCHC 32.1 g/dL (32.0-37.0); MCV 94.3 FL (80.0-97.0); Monocytes # (A) 0.56 X 10*3/uL (0.20-1.00); Monocytes % (A) 15.2 %; NRBC Per 100 WBC 0 X 10*3/uL (0.00-0.01); Neutrophils # (A) 1.51 X 10*3/uL (1.80-7.70); Neutrophils % (A) 40.8 %; Platelet Count 134 X 10*3/uL (140-440); RBC 4.76 X 10*6/uL (4.40-5.60); RDW 15.1 % (11.5-14.5); WBC 3.69 X 10*3/uL (4.50-10.00)
[2023-07-13 18:34] LABS: BUN/Creat Ratio 9.38 Ratio (12.00-20.00); Blood Urea Nitrogen 7.5 mg/dL (9.0-27.0); Calcium 9.5 mg/dL (8.7-10.3); Carbon Dioxide 25.1 mmol/L (21.6-31.8); Chloride 102 mmol/L (96-109); Glucose 94 mg/dL (70-110); Potassium 4.8 mmol/L (3.5-5.5); Sodium 140 mmol/L (135-145)
== END | disposition home or self-care (01) ==
LOC: LABPAT 09:34
PROVIDERS: ATTEND Urology
DX: Z01.812 Encounter for preprocedural laboratory examination (principal); R31.29 Other microscopic hematuria; R97.20 Elevated prostate specific antigen [PSA]
CPT/HCPCS: 80048; 81003; 85025; 87086

== ENCOUNTER 2023-07-21 10:33 | Day surgery (SDC) | payer MEDICARE ==
[2023-07-16 15:36] VITALS: BMI 25.8
[~2023-07-21 10:33] MED LIST changes: -ACETAMINOPHEN TAB 500 MG TAB PO PRN; -DEXAMETHASONE SOD PHOSPHATE 10 MG/ML 1 ML VIAL IV PRN; -DEXAMETHASONE SOD PHOSPHATE 4 MG/ML 1 ML VIAL IV ONE; -DOCUSATE 100 MG CAP PO PRN; -FAMOTIDINE 20 MG/2 ML VIAL IVP PRN; +GENTAMICIN 120 MG in SODIUM CHLORIDE 0.9% 100 ML IVPB PRN; -KETOROLAC 15 MG/ML 1 ML VIAL IVP PRN; +LACTATED RINGERS 1,000 ML IV SCH; -ONDANSETRON 4 MG/2 ML VIAL IVP ONE; -ONDANSETRON 4 MG/2 ML VIAL IVP PRN; -TRANEXAMIC 1,000 MG/100ML-NACL 1,000 MG in SALINE 1 100ML.BAG IV PRN; -TRANEXAMIC 1,000 MG/100ML-NACL 1,000 MG in SALINE 1 100ML.BAG IVPB PRN; -oxyCODONE ER 10 MG TAB.ER.12H PO PRN
[2023-07-21 11:24] VITALS: RESP 16; TEMP 97.4
[2023-07-21] MEDS ORDERED: ONDANSETRON 4 MG/2 ML VIAL ONE (11:29)
[2023-07-21] MEDS ORDERED: DEXAMETHASONE SOD PHOSPHATE 4 MG/ML 1 ML VIAL IVP ONE (11:36)
--- NOTE | 2023-07-21 11:38 | P.HPIHPCON ---
History of Present Illness H&P Date: 07/21/23 Chief Complaint: Elevated PSA This is a 73-year-old male with history of elevated PSA. Initially he wanted to proceed with an MRI patient is claustrophobic and later preferred to proceed with a prostate biopsy. Aware of the risk of biopsy which includes but not limited to bleeding, infection. He understood all the risk and agree to proceed with a prostate biopsy Consent for Procedure: I have explained the operation/procedure to the patient, including the risks, benefits, side effects, alternative therapies (including not receiving the proposed treatment or service), the likelihood of the patient achieving his/her goals, and potential recuperation problems for the procedure/sedation/analgesia, as well as any blood products, if indicated. I also explained to the patient the risks, benefits and side effects of the alternatives, as well as the risks related to not receiving the proposed procedure, care, treatment, or services. Past Medical History Past Medical History: Cancer, GERD/Reflux, Hyperlipidemia, Hypertension, Thyroid Disorder Additional Past Medical History / Comment(s): Hx Gout, Multiple Myeloma History of Any Multi-Drug Resistant Organisms: None Reported Past Surgical History: Joint Replacement Additional Past Surgical History / Comment(s): STEP CELL TRANSPLANT @ [facility] APRIL 13, 2020, surgery for dupuytren jamie hands, LEFT HIP REPLACED Past Anesthesia/Blood Transfusion Reactions: No Reported Reaction Past Psychological History: No Psychological Hx Reported Smoking Status: Former smoker Past Alcohol Use History: Rare Additional Past Alcohol Use History / Comment(s): smoker for 30 years 1ppd quit 2004. USE TO Drink 3-4 beers daily Past Drug Use History: None Reported - Past Family History Mother Family Medical History: Cancer Additional Family Medical History / Comment(s): Pancreatic cancer. Medications and Allergies Home Medications Medication Instructions Recorded Confirmed Type Lenalidomide [Revlimid] 2.5 mg PO DAILY 07/10/22 07/16/23 History Levothyroxine Sodium [Synthroid] 50 mcg PO QAM 05/27/23 07/16/23 History Omeprazole 40 mg PO DAILY 30 Days #30 cap 06/03/23 07/16/23 Rx Aspirin 325 mg PO DAILY 07/16/23 07/16/23 History Allergies Allergy/AdvReac Type Severity Reaction Status Date / Time No Known Allergies Allergy Verified 07/21/23 11:10 Surgical - Exam Vital Signs Temp Pulse Resp BP Pulse Ox 97.4 F L 74 16 162/72 98 07/21/23 11:20 07/21/23 11:20 07/21/23 11:20 07/21/23 11:20 07/21/23 11:20 - General no distress, no pain - Eyes normal ocular movement, no pale - ENT normal nares, normal mucosa - Respiratory normal expansion, normal respiratory effort - Abdomen Abdomen: soft, non tender - Psychiatric oriented to time, oriented to person, oriented to place Assessment and Plan Assessment: OR for Transrectal ultrasound and prostate biopsy
[2023-07-21] MEDS ORDERED: PROPOFOL 10 MG/ML 20 ML VIAL IV ONE (12:02)
[2023-07-21] MEDS ORDERED: LIDOCAINE 1% INJ 10MG/ML (20 ML MDV) ONE (12:02)
--- NOTE | 2023-07-21 12:24 | P.OP ---
Date of Procedure: 07/21/23 Preoperative Diagnosis: Elevated PSA Postoperative Diagnosis: Same Procedure(s) Performed: Transrectal ultrasound, prostate biopsy Implants: none Anesthesia: MAC Surgeon: Lui Harris Estimated Blood Loss (ml): 0 Pathology: other (prostate biopsies) Condition: stable Disposition: PACU Indications for Procedure: This is a 73-year-old male with history of elevated PSA. Initially he wanted to proceed with an MRI patient is claustrophobic and later preferred to proceed with a prostate biopsy. Aware of the risk of biopsy which includes but not limited to bleeding, infection. He understood all the risk and agree to proceed with a prostate biopsy Description of Procedure: The patient was taken to the operating room and placed in the left lateral decubitus position. The [employer] transrectal ultrasound probe was placed intrarectally. It was then placed within the stand of the [employer] MRI/TRUS Fusion for Prostate Biopsy system. The prostate was imaged in both the axial and sagittal planes, prostate measured 44 g. Using the Biopsy gun, 12 biopsies of the peripheral zone were obtained utilizing a standard template. Once the procedure was completed, the ultrasound probe was removed. The patient tolerated the procedure well was taken to the recovery room stable condition
[2023-07-21 12:50] VITALS: BP 144/70; PULSE 62
== END 2023-07-21 13:00 | disposition home or self-care (01) ==
LOC: OR 10:33
PROVIDERS: ATTEND Urology
DX: C61 Malignant neoplasm of prostate (principal); K21.9 Gastro-esophageal reflux disease without esophagitis; E78.5 Hyperlipidemia, unspecified; I10 Essential (primary) hypertension; E07.9 Disorder of thyroid, unspecified; F10.90 Alcohol use, unspecified, uncomplicated; Z87.891 Personal history of nicotine dependence; Z79.899 Other long term (current) drug therapy
CPT/HCPCS: 55700; 88344; 88305; J1100; J2405; J2001; J1580; J2704

== ENCOUNTER → 2025-03-14 | Day surgery (SDC) | payer MEDICARE ==
--- NOTE | 2025-03-07 11:32 | P.HPIHPCON ---
History of Present Illness H&P Date: 03/07/25 Chief Complaint: Prostate cancer This is a 74-year-old male with history of [place] 6 prostate cancer diagnosed back July 2023. He is currently being managed with active surveillance,I discussed with him I do recommend a repeat biopsy. He is aware of the risk which include but not limited to bleeding, infection. He understood all the risk and agreed to proceed Consent for Procedure: I have explained the operation/procedure to the patient, including the risks, benefits, side effects, alternative therapies (including not receiving the proposed treatment or service), the likelihood of the patient achieving his/her goals, and potential recuperation problems for the procedure/sedation/analgesia, as well as any blood products, if indicated. I also explained to the patient the risks, benefits and side effects of the alternatives, as well as the risks related to not receiving the proposed procedure, care, treatment, or services. Past Medical History Past Medical History: Cancer, GERD/Reflux, Hyperlipidemia, Hypertension, Thyroid Disorder Additional Past Medical History / Comment(s): Hx Gout. Multiple Myeloma- states hx oral chemo, STOPPED END OF JANUARY 2020. Acyclovir used as preventative for shingles. TAKING NO MEDS FOR BP OR CHOLESTEROL. History of Any Multi-Drug Resistant Organisms: None Reported Past Surgical History: Joint Replacement Additional Past Surgical History / Comment(s): STEP CELL TRANSPLANT @ [facility] March,. surgery for dupuytren jamie hands Past Anesthesia/Blood Transfusion Reactions: No Reported Reaction Additional Past Alcohol Use History / Comment(s): smoker for 30 years 1ppd quit 2004. USE TO Drinks 3-4 beers daily - Past Family History Mother Family Medical History: Cancer Additional Family Medical History / Comment(s): Pancreatic cancer. Medications and Allergies Home Medications Medication Instructions Recorded Confirmed Type Lenalidomide [Revlimid] 2.5 mg PO DAILY 07/10/22 07/16/23 History Levothyroxine Sodium [Synthroid] 50 mcg PO QAM 05/27/23 07/16/23 History Omeprazole 40 mg PO DAILY 30 Days #30 cap 06/03/23 07/16/23 Rx Aspirin 325 mg PO DAILY 07/16/23 07/16/23 History Allergies Allergy/AdvReac Type Severity Reaction Status Date / Time No Known Allergies Allergy Verified 07/21/23 11:10 Surgical - Exam - General no distress, no pain - Eyes normal ocular movement, no pale - ENT normal nares, normal mucosa - Respiratory normal expansion, normal respiratory effort - Abdomen Abdomen: soft, non tender, no distended - Psychiatric oriented to time, oriented to person, oriented to place Assessment and Plan Assessment: OR for transrectal biopsy of the prostate
[2025-03-09 14:39] VITALS: BMI 25.1
[~2025-03-14] MED LIST changes: -GENTAMICIN 120 MG in SODIUM CHLORIDE 0.9% 100 ML IVPB PRN; -HYDROmorphone 0.5 MG/0.5 ML SYRINGE IVP PRN; -LACTATED RINGERS 1,000 ML IV SCH; +LIDOCAINE 1% INJ 10MG/ML (20 ML MDV) ONE; +PROPOFOL 10 MG/ML 20 ML VIAL IV ONE
[2025-03-14 07:57] VITALS: TEMP 97
[2025-03-14] MEDS: LACTATED RINGERS 1,000 ML IV SCH (07:58)
[2025-03-14] MEDS: IV FLUID CONTINUATION 1,000 ML IV ONE (08:00)
[2025-03-14] MEDS: GENTAMICIN 40 MG/ML 2 ML VIAL IM PRN (08:03)
--- NOTE | 2025-03-14 09:47 | P.OP ---
Date of Procedure: 03/14/25 Preoperative Diagnosis: Prostate cancer Postoperative Diagnosis: Same Procedure(s) Performed: Transrectal ultrasound biopsy of the prostate Implants: None Anesthesia: MAC Surgeon: Lui Harris Estimated Blood Loss (ml): 1 Pathology: other (Prostate biopsy) Condition: stable Disposition: PACU Indications for Procedure: This is a 74-year-old male with history of [place] 6 prostate cancer diagnosed back July 2023. He is currently being managed with active surveillance,I discussed with him I do recommend a repeat biopsy. He is aware of the risk which include but not limited to bleeding, infection. He understood all the risk and agreed to proceed Description of Procedure: The patient was taken to the operating room and placed in the left lateral decubitus position. The [employer] transrectal ultrasound probe was placed intrarectally. The prostate was imaged in both the axial and sagittal planes. There was hypoechoic area seen along the right apex at the area of the patient's known prostate cancer. Using the Biopsy 12 biopsies of the peripheral zone were obtained utilizing a standard template, 2 biopsies were obtained of the right apex, mid, lateral apex and lateral mid. Once the procedure was completed, the ultrasound probe was removed. The patient tolerated the procedure well was taken to the recovery room stable condition
[2025-03-14 10:02] VITALS: BP 119/71; PULSE 67; RESP 16
== END | disposition home or self-care (01) ==
LOC: OR 07:26
PROVIDERS: ATTEND Urology
DX: C61 Malignant neoplasm of prostate (principal); K21.9 Gastro-esophageal reflux disease without esophagitis; E78.5 Hyperlipidemia, unspecified; I10 Essential (primary) hypertension; Z79.82 Long term (current) use of aspirin; Z79.890 Hormone replacement therapy; Z79.899 Other long term (current) drug therapy
CPT/HCPCS: 55700; 88344; 88305; J1580; J2003; J2704